=== PATIENT | female | born 1940 | race Caucasian/White ===

== ENCOUNTER 2019-09-19 19:36 | Inpatient (IN) | payer OTHER ==
[2019-09-19] MEDS ORDERED: NA CHLORIDE 0.9% 1,000 ML IV SCH (22:00)
[2019-09-19 22:02] LABS: Absolute Lymphocytes (CBC) 1.2 K/uL (0.7-4.9); Basophils % 0.3 % (0-1.3); Hematocrit 44.9 % (36.0-45.0); Lymphocytes % 13.8 % (15.3-44.8); MPV 8.6 fL (7.6-11.3); RBC Red Blood Cell Count 4.86 M/uL (3.86-4.86)
[2019-09-19 22:16] LABS: Albumin 4.3 g/dL (3.4-5.0); Bilirubin Total 0.4 mg/dL (0.2-1.0); Magnesium 2.9 mg/dL (1.8-2.4); Potassium 3.9 mmol/L (3.5-5.1); Protein, Total 9.5 g/dL (6.4-8.2)
[2019-09-19] MEDS ORDERED: ACETAMINOPHEN 500 MG TAB PO PRN (23:07)
[2019-09-19] MEDS: ONDANSETRON 4 MG/2 ML VIAL IV PRN (23:49)
[2019-09-19] MEDS ORDERED: POTASSIUM CL SA 10 MEQ TAB PO ONE (23:56)
[2019-09-20] MEDS: Levofloxacin 250mg IV 250 MG/50 ML BAG IV SCH (02:42)
[2019-09-20 03:14] LABS: Urine Appearance CLOUDY; Urine Blood NEGATIVE (NEG); Urine Color YELLOW; Urine Glucose NEGATIVE (NEG); Urine Protein TRACE (NEG); Urine Urobilinogen 0.2 mg/dL (0.2-1.0)
[2019-09-20 03:53] LABS: Urine Bilirubin NEGATIVE (NEG)
[2019-09-20] MEDS: METRONIDAZOLE 500mg IVPB 500 MG/100 ML BAG IV SCH ×3 (04:15→16:51)
[2019-09-20 04:23] LABS: Urine Bacteria >50 /HPF (<20); Urine Culture Reflex Order REFLEXED; Urine RBC <5 /HPF (NONE SEEN)
[2019-09-20] MEDS: ONDANSETRON 4 MG/2 ML VIAL IV PRN (05:41)
--- NOTE | 2019-09-20 06:58 | RAD REPORT ---
EXAM DESCRIPTION: RAD - Chest Pa And Lat (2 Views) - 09/19/2019 9:39 pm CLINICAL HISTORY: abd pain COMPARISON: None. TECHNIQUE: PA and lateral views of the chest were obtained. FINDINGS: The lungs are normal volume. No failure or volume overload. Interstitial stranding is pres ent in each lung base. No comparison is available. This could be scarring or atelectasis. Minimal int erstitial infiltrate is not excluded but lesser in likelihood. Heart size is normal and central vasculature is within normal limits. No pleural effusion or pneu mothorax seen. No acute bony finding noted. No aortic abnormality. IMPRESSION: No focal mass, consolidation or failure finding. Baseline examination showing minimal stranding in each lung base. This could be atelectasis, scarring or less likely mild interstitial infiltrate.
[2019-09-20 07:09] LABS: Potassium 3.8 mmol/L (3.5-5.1)
[2019-09-20] MEDS ORDERED: INFLUENZA VACCINE (for 3y+) 0.5 ML DOSE IMVAC ONE (08:00)
[2019-09-20] MEDS ORDERED: PNEUMOCOCCAL VACCINE 0.5 ML IMVAC ONE (08:00)
[2019-09-20] MEDS ORDERED: PROMETHAZINE INJ 25 MG/ML AMP IV PRN (08:54)
[2019-09-20] MEDS ORDERED: HEPARIN 5000 UNIT/ML 1 ML VIAL SQ SCH (09:00)
[2019-09-20] MEDS: METOPROLOL XL 25 MG TAB PO SCH (09:00)
[2019-09-20] MEDS: NA CHLORIDE 0.9% 1,000 ML IV SCH ×2 (09:05→16:51)
[2019-09-20] MEDS: FAMOTIDINE 20 MG/2 ML VIAL IV SCH (09:08)
[2019-09-20] MEDS ORDERED: propofoL 200 MG/20 ML VIAL IV ONE (10:59)
[2019-09-20] MEDS ORDERED: LIDOCAINE 2% MPF 5 ML VIAL ONE (10:59)
[2019-09-20] MEDS ORDERED: ONDANSETRON 4 MG/2 ML VIAL ONE ×2 (10:59→13:59)
[2019-09-20] MEDS ORDERED: ROCURONIUM 50 MG/5 ML VIAL IV ONE ×2 (11:00→12:34)
[2019-09-20] MEDS ORDERED: Ringers Lactate 1,000 ML IV ONE ×3 (11:24→13:56)
--- NOTE | 2019-09-20 11:28 | RAD REPORT ---
EXAM DESCRIPTION: CT - Abdomen Pelvis Wo Contrast - 09/20/2019 4:03 am CLINICAL HISTORY: Nausea, vomiting, constipation. Fibromyalgia. Left lower quadrant abdominal pain. COMPARISON: None. TECHNIQUE: Axial unenhanced CT imaging of the abdomen and pelvis performed. Reformatted coronal and sagittal images reviewed. A dose reduction technique was utilized with automated exposure control according to patient size. FINDINGS: Scattered atelectasis in the lingula. Mild centrilobular nodular opacities in the left low er lobe compatible with small airways inflammatory/infectious process. There is a 1.1 cm nodule withi n right middle lobe. The heart is normal in size. Normal liver. Normal gallbladder, spleen, pancreas, adrenal glands, and kidneys. Moderate aorta ather osclerosis. No aneurysm. Inferior vena cava is flat in contour indicative of hypovolemia. No retroper itoneal lymphadenopathy. There is contrast distention of the stomach. There is diffuse dilatation of the jejunum. Transition p oint is in the left lower quadrant where there is a left lateral rectus ventral abdominal wall hernia containing a short segment of the small bowel. There is edema within the herniated fat surrounding t he herniated segment of bowel. The small bowel distal to the hernia is decompressed. Normal appendix in the right lower quadrant. Unremarkable colon. No mesenteric adenopathy or ascites. No free air. Normal bladder. Uterus is surgically absent. There is no pelvic free fluid. There is a small fat-cont aining left inguinal hernia. There is a small bowel and fat containing right inguinal hernia without obstruction or incarceration. There is a moderate diffuse disc bulge at L1-2, L3-4. There is mild degenerative anterior subluxation of L4 on L5. There is significant degenerative disc space narrowing at L5-S1. Bony pelvis and hips a re unremarkable. IMPRESSION: 1. Left lower quadrant lateral rectus abdominal wall hernia containing a short segment o f jejunum and fat causing small bowel proximal obstruction. There is evidence of incarceration. No pe rforation. 2. Unincarcerated small bowel containing right inguinal and fat-containing hernia. A small fat-contai lobo left inguinal hernia is also present. 3. Hypovolemia. 4. Moderate diffuse disc bulge at L1-2 and L3-4. 5. Centrilobular left lower lobe and lingula nodular infiltrates. 6. 1.1 cm right middle lobe pulmonary nodule. 11.0 mm solid pulmonary nodule detected on incomplete chest CT. Recommend immediate non-contrast Ches t CT for further evaluation. These guidelines do not apply to immunocompromised patients and patients with cancer. Follow up in pa tients with significant comorbidities as clinically warranted. For lung cancer screening, adhere to L jhony-RADS guidelines. Reference: Radiology. 2017; 284(1):228-43. Electronically signed by: Irlanda Uriarte DO 09/20/2019 3:57 AM HISTOLOGY SPECIALIST Due to temporary technical issues with the PACS/Fluency reporting system, reports are being signed by the in house radiologist as a courtesy to ensure prompt reporting. The interpreting radiologist is f ully responsible for the content of the report.
[2019-09-20] MEDS ORDERED: SUCCINYLCHOLINE 20 MG/ML (10 ML) IV ONE (11:37)
[2019-09-20] MEDS ORDERED: FENTANYL CITR 100 MCG/2 ML ONE ×2 (11:38→12:57)
[2019-09-20] MEDS ORDERED: GLYCOPYRROLATE 0.2 MG/ML SYR ONE ×2 (13:34)
[2019-09-20] MEDS ORDERED: NEOSTIGMINE 1 MG/ML -10 ML VIAL ONE (13:38)
--- NOTE | 2019-09-20 13:58 | P.BOP ---
Preoperative diagnosis: small bowel obstruction, strangulated left inguinal hernia, incarcerated RI Postoperative diagnosis: same Primary procedure: 1. emergent Exploratory laparotomy, 2. small bowel resection/ anastomosis Secondary procedure: 3. Open repair of strangulated left inguinal hernia Other procedure(s): 4. Open repair of incarcerated right inguinal hernia Child And Family Therapist: Lindsay Masters) Estimated blood loss: <50cc Specimen: small bowel , hernia sac Findings: see dictation Anesthesia: General Complications: None Transferred to: Recovery Room Condition: Good
[2019-09-20] MEDS: HYDROMORPHONE HCL 2 MG/ML inj ONE ×4 (13:59→14:19)
[2019-09-20] MEDS ORDERED: MORPHINE 4 MG/ML SYR IV PRN (14:05)
[2019-09-20] MEDS ORDERED: HYDROMORPHONE HCL 1 MG/ML INJ ONE (15:41)
[2019-09-21] MEDS: Levofloxacin 250mg IV 250 MG/50 ML BAG IV SCH (00:13)
--- NOTE | 2019-09-21 00:18 | PN ---
Date of Progress Note: 09/20/2019 Subjective: Patient was seen this morning for followup. She was lying in bed, not in distress. Rep orted 1 episode of nausea, vomiting last night. Objective: Vital Signs: Reviewed. HEENT: Unremarkable. Lungs: Clear to auscultation. Heart: Heart sounds normal. Abdomen: Soft, bowel sounds normal. No guarding, rigidity, distention. Very minimum tenderness in left lower quadrant. Extremities: No leg edema. Laboratory Data: Sodium 129, potassium 3.8, chloride 92, bicarb 20, BUN 113, creatinine 4.28, glucos e 113. Impression: 1.Acute renal failure. 2.Volume depletion. 3.Small bowel obstruction with incarcerated hernia. 4.Hypertension. Plan: We will continue current medications. Keep patient n.p.o. IV fluid, IV antibiotics will be gi riya per order. This morning, she had approximately 500 mL of IV fluid in her bag. Nurse was advised to give it wide-open and then continue IV fluid at 125 mL/hour. We will repeat blood work tomorrow. Details were discussed with Dr. Willoughby, who is planning to take her to surgery today. Plan of tr eatment discussed with family member also. We will continue IV Pepcid. Metoprolol 25 mg daily was ordered to be started this morning for hypertension. ARMIN/MODL Voice ID: [id number] Report ID: [id number]
[2019-09-21] MEDS: METRONIDAZOLE 500mg IVPB 500 MG/100 ML BAG IV SCH ×3 (01:22→16:00)
[2019-09-21] MEDS: NA CHLORIDE 0.9% 1,000 ML IV SCH (01:22)
--- NOTE | 2019-09-21 04:01 | HP ---
Date of Admission: 09/19/2019 Chief Complaint: Abdominal pain, nausea, vomiting, and not feeling good. History Of Present Illness: This is a 79-year-old female patient, came into office today and reporte d that she started to have some sinus congestion and [facility], and wa s diagnosed as having sinus infection and she was prescribed a Z-Mark that she took it. About 1 week ago, she started to have abdominal pain associated with nausea and vomiting. She has also constipati on problem in last 1 week and her last bowel movement was 1 week ago. She is feeling very weak and d oes not have good appetite and when she tries to eat, she ends up having nausea and vomiting. She di d not seek any medical attention until today. She decided to come see me and after I evaluated her, decision was made to admit her to the hospital as I was concerned about dehydration on basis of clini susan exam. Review of Systems: GI: As mentioned above. Constitutional: As mentioned above. All other systems reviewed and negative. Allergies: PENICILLIN, CAUSING RASH. Medications: Amlodipine 5 mg daily, aspirin 81 mg daily, Caltrate plus D 1 tablet 2 times a day, Cla ritin 10 mg daily as needed for allergies. Past Surgical History: Significant for hysterectomy. Family History: Significant for father of stomach cancer. Mother of colon cancer. Sister with hypertension. Social History: Negative for smoking and alcohol use. Past Medical History: Hypertension, hyperlipidemia, osteoporosis, and diverticulosis. Physical Examination: At office when she came in today, Vital Signs: Blood pressure 120/88; pulse 114 per minute, regular; temperature 98.2; respiratory rat e 15; weight 142.6 pounds; and height 61 inches. General: Patient appears weaker than normal, not in any respiratory distress. HEENT: Dry oral mucosa. Otherwise rest of the HEENT examination unremarkable. Neck: Supple. No JVD, lymph nodes, bruit, thyromegaly noted. Lungs: Bilateral good equal air entry. Clear to auscultation. No rhonchi. No rales. Heart: Normal heart sounds, no murmur or gallop. Abdomen: Soft. Bowel sounds normoactive. No guarding, rigidity. No distention. Minimum left lowe r quadrant tenderness present. No rebound tenderness. No hepatosplenomegaly. No bruit. Extremities: No leg edema. No calf tenderness. Skin: No rash, ulcer, cellulitis. Lymphatics: No lymph node enlargement in neck, supraclavicular, infraclavicular region. Neuro: No focal neurological deficit. Chest: Unremarkable. External Genitalia: Deferred. Rectal: Deferred. Laboratory Data: Blood work after she was admitted to the hospital revealed white count 9, hemoglobi n 15.2, platelets 267. Sodium 130, potassium 3.9, chloride 94, bicarb 19, BUN 111, creatinine 4.32, glucose 135, calcium 10.3, magnesium 2.9. Liver function tests unremarkable. Procalcitonin 0.44, la ctic acid 1.7. Chest x-ray, no acute cardiopulmonary changes. CAT scan of abdomen shows evidence of abdominal wall hernia with incarcerated bowel and pulmonary nodule. Impression: 1.Acute renal failure. 2.Volume depletion. 3.Abdominal wall hernia with small bowel incarceration. 4.Hypertension. 5.Hyperlipidemia. 6.Osteoporosis. 7.Diverticulosis. Plan: Admit patient to the hospital for further evaluation and management of this problem. The [facility] ent is appropriate for inpatient and is expected to spend 2 midnights in hospital. After she was gricel luated at office, she was admitted to the hospital. After admission to the hospital, workup was done , results as mentioned above. The patient was started on IV fluid, IV antibiotics, and we will consu lt general surgeon. DVT prophylaxis will be given per order. We will monitor patient's electrolytes , renal function, and I will see her tomorrow for followup. Pain medication and nausea medication wi ll be given per order. ARMIN/MODL Voice ID: [id number]
[2019-09-21 04:51] LABS: Basophils % 0.2 % (0-1.3); MPV 9.1 fL (7.6-11.3); RBC Red Blood Cell Count 3.77 M/uL (3.86-4.86)
[2019-09-21 04:54] LABS: Magnesium 2.2 mg/dL (1.8-2.4); Potassium 3.6 mmol/L (3.5-5.1)
[2019-09-21 05:52] VITALS: BMI 26.5
[2019-09-21] MEDS ORDERED: KCL 20 MEQ/100 mL IVPB 20 MEQ/100 ML BAG IV SCH (06:00)
[2019-09-21] MEDS: D5 0.9 NS 1,000 ML IV SCH ×2 (08:00→10:46)
[2019-09-21] MEDS: FAMOTIDINE 20 MG/2 ML VIAL IV SCH (08:08)
[2019-09-21] MEDS: MORPHINE 4 MG/ML SYR IV PRN ×3 (08:09→17:12)
[2019-09-21] MEDS: METOPROLOL XL 25 MG TAB PO SCH (08:09)
[2019-09-21] MEDS: HEPARIN 5000 UNIT/ML 1 ML VIAL SQ SCH ×2 (08:23→21:09)
--- NOTE | 2019-09-21 09:22 | P.PN ---
Subjective Date of Service: 09/21/19 Subjective: Improving, Doing well Review of Systems General: Fever (no), Chills (no) Respiratory: Shortness of Breath (no) Cardiovascular: Chest Pain (no) Integumentary: Unremarkable Physical Examination - Vital Signs Temperature: 98.8 F Blood Pressure: 138/66 Pulse: 88 Respirations: 21 Pulse Ox (%): 98 - Physical Exam General: Alert, In no apparent distress, Oriented x3, Cooperative HEENT: PERRLA, EOMI Neck: Supple Respiratory: Normal air movement Cardiovascular: Normal pulses Gastrointestinal: Hypoactive Integumentary: No rashes - Studies Laboratory Data (last 24 hrs) 09/21/19 04:26: Sodium 139, Potassium 3.6, BUN 78 H D, Creatinine 2.36 H D, Glucose 110 H, Magnesium 2.2 D 09/21/19 04:26: WBC 9.6, Hgb 11.7 L D, Hct 35.0 L D, Plt Count 204 D Assessment And Plan - Plan IS PT SCD resume lovenox tomorrow OK for floor transfer when ok by medicine NPO
[2019-09-21] MEDS: ONDANSETRON 4 MG/2 ML VIAL IV PRN ×2 (12:40→17:12)
[2019-09-22] MEDS: Levofloxacin 250mg IV 250 MG/50 ML BAG IV SCH (00:03)
--- NOTE | 2019-09-22 01:04 | PN ---
Date of Progress Note: 09/21/2019 Subjective: Patient was seen this morning for followup. She was lying in bed in ICU. Her son was p resent with her at bedside. Objective: Vital Signs: Reviewed. HEENT: Unremarkable. Lungs: Clear to auscultation. Heart: Sounds normal. Abdomen: Soft. Bowel sounds hypoactive. Extremities: No leg edema. Laboratory Data: White count 9.6, hemoglobin 11.7, platelets 204. Sodium 139, potassium 3.6, chlori de 107, bicarb 23, BUN 78, creatinine 2.36, glucose 110, magnesium 2.2. Impression: 1.Incarcerated abdominal wall hernia, status post surgery. 2.Acute renal failure. 3.Volume depletion. 4.Anemia. 5.Hypertension. Plan: We will go ahead and continue IV fluid per order. Continue IV antibiotics. DVT prophylaxis w ill be given using heparin per order. Patient is medically stable for transfer. See transfer order for more details. Consult Physical Therapy. We will repeat blood work tomorrow morning. I will see her tomorrow morning for followup. ARMIN/MODL Voice ID: [id number] Report ID: [id number]
[2019-09-22] MEDS: METRONIDAZOLE 500mg IVPB 500 MG/100 ML BAG IV SCH ×3 (01:30→16:49)
[2019-09-22] MEDS: D5 0.9 NS 1,000 ML IV SCH (04:00)
[2019-09-22] MEDS: ONDANSETRON 4 MG/2 ML VIAL IV PRN ×3 (05:18→21:48)
[2019-09-22] MEDS: MORPHINE 4 MG/ML SYR IV PRN ×3 (05:19→21:48)
[2019-09-22 05:40] LABS: Absolute Lymphocytes (CBC) 0.9 K/uL (0.7-4.9); Basophils % 0.4 % (0-1.3); Hematocrit 33.4 % (36.0-45.0); Lymphocytes % 10.5 % (15.3-44.8); MPV 8.4 fL (7.6-11.3); RBC Red Blood Cell Count 3.57 M/uL (3.86-4.86)
[2019-09-22 05:56] LABS: Magnesium 2.2 mg/dL (1.8-2.4); Potassium 3.8 mmol/L (3.5-5.1)
[2019-09-22] MEDS: D5 0.45 NS 1,000 ML IV SCH ×2 (06:58→21:47)
[2019-09-22] MEDS ORDERED: KCL 20 MEQ/100 mL IVPB 20 MEQ/100 ML BAG IV SCH (07:00)
[2019-09-22] MEDS: METOPROLOL XL 25 MG TAB PO SCH (09:00)
[2019-09-22] MEDS: Levofloxacin500mg IV 500 MG/100 ML BAG IV SCH (09:30)
[2019-09-22] MEDS: FAMOTIDINE 20 MG/2 ML VIAL IV SCH (09:45)
[2019-09-22] MEDS: HEPARIN 5000 UNIT/ML 1 ML VIAL SQ SCH ×2 (09:45→21:49)
--- NOTE | 2019-09-23 01:04 | PN ---
Date of Progress Note: 09/22/2019 Subjective: The patient was seen this morning for followup. No new complaints or problems reported by her. NG tube was in place. Denies any abdominal pain except when she gets up to do therapy, othe rwise no other complaints. No shortness of breath. She feels much better. She looks much better. Her son was present with her at bedside. Objective: Vital Signs: Reviewed. HEENT: Unremarkable. Lungs: Clear to auscultation. Heart: Heart sounds normal. Abdomen: Soft, bowel sounds hypoactive. Surgical dressing present. Extremities: No leg edema. Laboratory Data: Lab shows white count 9.8, hemoglobin 11.5, platelets 196. Sodium 146, potassium 3 .8, chloride 115, bicarb 27, BUN 45, creatinine 1.39, glucose 136, magnesium 2.2. Impression: 1.Small bowel obstruction with incarcerated hernia. 2.Acute renal failure. 3.Volume depletion. 4.Anemia. 5.Hypertension. Plan: We will continue current medication, antibiotics, Levaquin dose will be increased from 250 mg to 500 mg daily considering improvement in renal function. Continue Flagyl at current dose. Physica l therapy to help ambulate the patient. Continue IV fluids. Continue to follow up with Dr. Willoughby . He is possibly going to remove NG tube tomorrow, so patient can start hopefully clear liquid tomorrow when okay with Dr. Willoughby. I will s ee her tomorrow for followup. ARMIN/MODL Voice ID: [id number] Report ID: [id number]
[2019-09-23] MEDS: METRONIDAZOLE 500mg IVPB 500 MG/100 ML BAG IV SCH ×3 (01:13→16:32)
[2019-09-23 06:04] LABS: Magnesium 2.1 mg/dL (1.8-2.4)
[2019-09-23 06:09] LABS: Absolute Lymphocytes (CBC) 1.4 K/uL (0.7-4.9); Basophils % 0.4 % (0-1.3); Hematocrit 35.7 % (36.0-45.0); Lymphocytes % 16.1 % (15.3-44.8); RBC Red Blood Cell Count 3.75 M/uL (3.86-4.86)
[2019-09-23] MEDS: Levofloxacin500mg IV 500 MG/100 ML BAG IV SCH (06:14)
[2019-09-23] MEDS: FAMOTIDINE 20 MG/2 ML VIAL IV SCH (08:47)
[2019-09-23] MEDS: HEPARIN 5000 UNIT/ML 1 ML VIAL SQ SCH ×2 (08:48→21:23)
[2019-09-23] MEDS: METOPROLOL XL 25 MG TAB PO SCH (08:48)
[2019-09-23] MEDS: MORPHINE 4 MG/ML SYR IV PRN ×3 (09:10→21:24)
[2019-09-23] MEDS: ONDANSETRON 4 MG/2 ML VIAL IV PRN ×3 (09:10→21:23)
[2019-09-23] MEDS: D5 0.45 NS 1,000 ML IV SCH ×3 (09:40→16:33)
--- NOTE | 2019-09-23 18:26 | PN ---
Date of Progress Note: 09/23/2019 Subjective: Patient was seen this morning for followup. No new complaints or problems reported by t he patient. She was sitting in the chair. Denied any complaints. NG tube came out yesterday. Fole y catheter came out yesterday. She did void about 160 mL of urine overnight. This morning, when I s aw her, she was sitting in chair. Denied any complaints. Had little bit nausea with ambulation, but otherwise no other complaints reported. Has not had a bowel movement yet. Objective: Vital Signs: Reviewed. HEENT: Unremarkable. Lungs: Clear to auscultation. Heart: Sounds normal. Abdomen: Soft. Bowel sounds normal. No guarding, rigidity. Mild tenderness around the surgical si te. Extremities: No leg edema. Laboratory Data: White count 8.9, hemoglobin 12, platelets 214. Sodium 142, potassium 4, chloride 1 16, bicarb 22, BUN 29, creatinine 1.13, glucose 118. Impression: 1.Small bowel obstruction. 2.Hypertension. 3.Anemia. 4.Acute renal failure. 5.Volume depletion. Plan: We will reduce IV fluid rate to 50 mL/hour. Continue clear liquid diet as started by general surgeon Dr. Willoughby and continue to follow up with him. Continue IV antibiotics and physical therap y to help ambulate the patient. Renal function is back to normal as of today. Patient was made aware of that and I will see her tomorrow for followup. ARMIN/MODL Voice ID: [id number] Report ID: [id number]
--- NOTE | 2019-09-23 18:26 | PN ---
Date of Progress Note: 09/23/2019 Diagnoses: Small bowel obstruction, incarcerated strangulated inguinal hernia, status post laparotom y, repair of hernia, and small-bowel resection. Subjective: Patient is doing better. No shortness of breath. No chest pain. Starting to tolerate clear liquid diet. Objective: Chest: Clear. Abdomen: Soft and depressible. Intact surgical site. Bowel sounds hypoactive. Extremities: Good capillary refill. Laboratory Data: Blood work shows WBC count of 8.9 and chloride is 116. Plan: Out of bed. Incentive spirometry. We are going to advance diet. May take a shower with dres sings off. Plan put discharge whenever she is tolerating diet. HM/MODL Voice ID: [id number] Report ID: [id number]
[2019-09-24] MEDS: METRONIDAZOLE 500mg IVPB 500 MG/100 ML BAG IV SCH ×3 (00:49→17:11)
--- NOTE | 2019-09-24 01:19 | OP ---
Date of Procedure: 09/23/2019 Surgeon: Mathew Willoughby MD Government Affairs Fellow: JOYCELYN Beauchamp. Diagnoses: Small bowel obstruction, strangulated left inguinal hernia, incarcerated right inguinal h ernia. Postoperative Diagnoses: Small bowel obstruction, strangulated left inguinal hernia, incarcerated ri ght inguinal hernia. Procedures: 1.Emergent exploratory laparotomy. 2.Small bowel resection and anastomosis. 3.Open repair of a strangulated left inguinal hernia. 4.Open repair of incarcerated right inguinal hernia. Specimens: Small bowel hernia sac. Indications: This case of a female who came emergently through the ER with very interesting finding she has small bowel obstruction and then she has also 2 hernias at the same time. Two of those herni as have a small bowel incarcerated on it and one of them looks like it even a strangulated. I explai jovi to the patient that 2 hernias are causing the bowel obstruction and unfortunately we might have t o repair 2 of them at the same time, also possible bowel resection, with emergent laparotomy with shantel efits, alternatives, and risks including, but not limited to infection, bleeding, damage to adjacent structures as complication, recurrence, NC, and even . She also understands, this may not relie ve the symptoms, she might need more than one surgical intervention. She understood, signed a consen t. Description Of Procedure: Patient was brought to the operating room, placed in supine position. Ane sthesia was done without complication. Abdominal area and inguinal area were prepped and draped in s terile fashion. We proceeded to make an incision in the inguinal region first. We were going to try to control that bowel first which, I believe was more affected. Incision was carried down to Kaitlin 's fascia. Opened external oblique aponeurosis in the direction of the fibers, got control of the in carcerated tissue in that area. Opened the hernia sac and they were in deed we noticed some bowel th at looked compromise. So, we did not reduce the bowel from there since we do not want miss that rese ction. We made a midline incision. Incision was carried down to fascia, opened in direct vision. W e did the emergent laparotomy. We were able to finally reduce the inguinal region and control the ar ea of the intestines that was just strangulated and marked. We will let a few minutes there to see i f recover. In the meantime, we proceeded to fix the right inguinal hernia. Once again, we had the s wagner findings. We were able at this time to reduce the small bowel also from the right inguinal herni a, but this time the bowel looks at least viable. We made an incision on the inguinal region. Incis ion carried down to fascia. Kaitlin's fascia was opened. External oblique aponeurosis was opened dir ection of the fiber and this was what allowed me to just be able to reduce this bowel by pulling and pushing gently. Once we had the bowel reduced and once again, the findings of being viable, we proce eded to close a deep inguinal ring with #1 Prolene. We visualized the ilioinguinal nerve and iliohyp ogastric nerve and both sides left and right, always protecting, we find external oblique aponeurosis . Once we closed the deep inguinal ring, we proceeded to bring the inguinal nerve, ilioinguinal and iliohypogastric nerve back into the inguinal canal, reconstructed the superficial inguinal ring, clos ed the external oblique aponeurosis making sure the nerves were not included. Kaitlin's fascia was cl osed with 3-0 chromic and skin with carlo. The same was done on the left side once again protectin g the nerve, closing the deep inguinal ring and closed the external oblique aponeurosis after the ner ve were placed back into the inguinal canal and making sure it was not close with the suture line. S carpa's fascia closed with 3-0 chromic and the skin with carlo. At that moment, we inspected once again the bowel from the ligament of Treitz to all the way to the cecum. Once again, we inspect also the large bowel. We also found the liver to be smoothed with the stomach soft and compressible. Th e area of the bowel that was in the right side was viable, but the area of the bowel of the left side it shows few centimeters that were not and still no peristalsis and has not recover in size or color , so we proceeded to then create a window in the mesentery and transect the bowel with a BRITNEY 55 proxi mal and distal. Gross negative margins viable. Then, we removed the small bowel with the help of Manuela Mancilla. We placed the antimesenteric border of each side of the bowel together. We created a window in the proximal and distal bowel, fired a BRITNEY-55 and then closed the enterotomy with a TA60. Excell ent anastomosis, no bleeding. Good color. The mesentery was closed approximated with a 0-chromic. We noted therefore a second looks good, good color, no bleeding. At that moment, I proceeded to irri gate the area until clean. Once again, we inspected 2 areas of the small bowel that was incarcerated to look like it was recovering size, color, the previous area that was just a very a collapse after the obstruction, now it looks like it was regaining shape and color. At that moment, I then proceede d to inspect the area of the inguinal hernias, looks nice and clean. At that moment, I proceeded the n to obtain sponge count and instrument counts were correct and then closed the fascia with #2 nylon in a running fashion. Then subcutaneous tissue with 3-0 chromic and skin with carlo. Sponge count and instrument counts were correct. Patient tolerated the procedure well. The patient was sent to the ICU in stable condition. LAURA/DARRELL Voice ID: [id number] Report ID: [id number]
[2019-09-24] MEDS: Levofloxacin500mg IV 500 MG/100 ML BAG IV SCH (05:21)
[2019-09-24 06:21] LABS: Magnesium 1.7 mg/dL (1.8-2.4); Potassium 3.8 mmol/L (3.5-5.1)
[2019-09-24 06:32] LABS: Absolute Lymphocytes (CBC) 1.5 K/uL (0.7-4.9); Basophils % 0.3 % (0-1.3); Hematocrit 33.8 % (36.0-45.0); Lymphocytes % 20.3 % (15.3-44.8); MPV 8.6 fL (7.6-11.3); RBC Red Blood Cell Count 3.56 M/uL (3.86-4.86)
[2019-09-24] MEDS ORDERED: MAGNESIUM SULFATE 1 gm IVPB 1 GM/100 ML BAG IV ONE (09:00)
[2019-09-24] MEDS ORDERED: POTASSIUM CL SA 10 MEQ TAB PO ONE (09:00)
[2019-09-24] MEDS: METOPROLOL XL 25 MG TAB PO SCH (09:20)
[2019-09-24] MEDS: FAMOTIDINE 20 MG/2 ML VIAL IV SCH (09:20)
[2019-09-24] MEDS: HEPARIN 5000 UNIT/ML 1 ML VIAL SQ SCH ×2 (09:21→20:35)
[2019-09-24] MEDS: CODEINE 30MG/APAP 300MG TAB PO PRN ×2 (12:42→20:35)
[2019-09-24] MEDS: D5 0.45 NS 1,000 ML IV SCH (18:49)
[2019-09-25] MEDS: METRONIDAZOLE 500mg IVPB 500 MG/100 ML BAG IV SCH ×3 (00:29→17:21)
[2019-09-25] MEDS: D5 0.45 NS 1,000 ML IV SCH (03:00)
[2019-09-25 05:15] LABS: Magnesium 1.9 mg/dL (1.8-2.4); Potassium 3.9 mmol/L (3.5-5.1)
[2019-09-25 05:17] LABS: Absolute Lymphocytes (CBC) 1.8 K/uL (0.7-4.9); Basophils % 0.4 % (0-1.3); Hematocrit 32.6 % (36.0-45.0); Lymphocytes % 23.9 % (15.3-44.8); MPV 8.4 fL (7.6-11.3); RBC Red Blood Cell Count 3.46 M/uL (3.86-4.86)
[2019-09-25] MEDS: Levofloxacin500mg IV 500 MG/100 ML BAG IV SCH (05:20)
[2019-09-25] MEDS: HEPARIN 5000 UNIT/ML 1 ML VIAL SQ SCH ×2 (09:09→22:35)
[2019-09-25] MEDS: METOPROLOL XL 25 MG TAB PO SCH (09:09)
[2019-09-25] MEDS: FAMOTIDINE 20 MG/2 ML VIAL IV SCH (09:09)
[2019-09-25] MEDS ORDERED: FUROSEMIDE 20 MG/ 2ML VIAL IV ONE (09:34)
[2019-09-25] MEDS ORDERED: MAGNESIUM HYDROXIDE 8% 30 ML PO ONE (09:34)
[2019-09-25] MEDS: CODEINE 30MG/APAP 300MG TAB PO PRN ×2 (10:16→22:34)
--- NOTE | 2019-09-25 10:41 | RAD REPORT ---
EXAM DESCRIPTION: RAD - Chest Single View - 09/25/2019 10:20 am CLINICAL HISTORY: Volume overload COMPARISON: September 19 TECHNIQUE: AP portable chest image was obtained 1015 hours . FINDINGS: Lung volumes are low compared to prior imaging. Medial left base assessment is very limite d. Mid and upper lung varma are not substantially different. Minimal lung base stranding is believed to be atelectasis. Heart and vasculature are normal. No measurable pleural effusion and no pneumotho rax. No acute bony abnormality seen. No acute aortic findings suspected. IMPRESSION: No acute cardiopulmonary process. No significant change from comparison. Medial left lung base assessment is limited on this shallow in spiration portable exam.
--- NOTE | 2019-09-25 11:02 | PN ---
Date of Progress Note: 09/24/2019 Subjective: Patient was seen this morning for followup. She was lying in bed, not in distress. Den ies any new complaints. Tolerating her diet well. No bowel movement yet. Denies any uncomfortable feeling in her rectum or abdomen due to lack of bowel movement. No nausea, no vomiting. Objective: Vital Signs: Reviewed. HEENT: Unremarkable. Lungs: Clear to auscultation. Heart: Sounds normal. Abdomen: Soft. Bowel sounds normal. No guarding, rigidity, tenderness, or distention. Extremities: No leg edema. Laboratory Data: White count 7.5, hemoglobin 11.4, platelets 233. Sodium 143, potassium 3.8, chlori de 112, bicarb 25, BUN 22, creatinine 1.07, glucose 125, magnesium 1.7. Impression: 1.Small bowel obstruction. 2.Hypomagnesemia. 3.Anemia. 4.Hypertension. Plan: We will go ahead and continue current medication. Continue current diet, IV antibiotics. IV fluids maintenance 50 cc/hour and we will probably consider to discontinue it tomorrow depending on h ow she tolerates her diet. Ambulation was encouraged. Replace magnesium per protocol. ARMIN/MODL Voice ID: [id number] Report ID: [id number]
--- NOTE | 2019-09-25 11:02 | PN ---
Date of Progress Note: 09/25/2019 Subjective: Patient was seen this morning for followup. No new complaints or problems reported by megan katz except has some dry cough. No bowel movement yet. Objective: Vital Signs: Reviewed. HEENT: Unremarkable. Lungs: Bilateral rales noted in lower 1/3rd of both lung region. Not using any accessory muscles of respiration. Heart: Sounds normal. Abdomen: Soft. Bowel sounds normal. No guarding, rigidity, tenderness, or distention. Extremities: Leg edema. Laboratory Data: White count 7.3, hemoglobin 10.9, platelets 217. Sodium 142, potassium 3.9, chlori de 112, bicarb 26, BUN 15, creatinine 0.98, glucose 124, magnesium 1.9. Impression: 1.Volume overload. 2.Small bowel obstruction. 3.Hypertension. 4.Anemia. 5.Constipation. Plan: Patient is no full liquid diet. She is tolerating that very well. Ambulation was encouraged. She is currently getting IV fluids at 50 cc/hour, which will discontinue today, considering clinica l signs and evidence of volume overload and symptom of dry cough. We will get a chest x-ray done. G chris her 1 dose of IV Lasix per order. Continue current IV antibiotics. Nutritional supplement will be started using Ensure and I will see her tomorrow for followup. Details were discussed with Dr. Willoughby, and we will give 1 dose of milk of magnesia today. ARMIN/MODL Voice ID: [id number] Report ID: [id number]
[2019-09-25] MEDS: ENSURE HIGH PROTEIN 237 ML CAN PO SCH ×2 (14:00→22:35)
[2019-09-26] MEDS: METRONIDAZOLE 500mg IVPB 500 MG/100 ML BAG IV SCH ×3 (01:11→16:48)
[2019-09-26 05:52] LABS: Absolute Lymphocytes (CBC) 1.9 K/uL (0.7-4.9); Basophils % 0.3 % (0-1.3); Hematocrit 31.7 % (36.0-45.0); Lymphocytes % 23.6 % (15.3-44.8); MPV 8.5 fL (7.6-11.3); RBC Red Blood Cell Count 3.44 M/uL (3.86-4.86)
[2019-09-26 06:06] LABS: Magnesium 1.9 mg/dL (1.8-2.4); Potassium 3.2 mmol/L (3.5-5.1)
[2019-09-26] MEDS: Levofloxacin500mg IV 500 MG/100 ML BAG IV SCH (06:36)
[2019-09-26] MEDS: FAMOTIDINE 20 MG/2 ML VIAL IV SCH (08:32)
[2019-09-26] MEDS: HEPARIN 5000 UNIT/ML 1 ML VIAL SQ SCH ×2 (08:32→21:04)
[2019-09-26] MEDS: METOPROLOL XL 25 MG TAB PO SCH (08:32)
[2019-09-26] MEDS: ENSURE HIGH PROTEIN 237 ML CAN PO SCH ×3 (08:33→21:09)
[2019-09-26] MEDS: MORPHINE 4 MG/ML SYR IV PRN (08:48)
[2019-09-26] MEDS: CODEINE 30MG/APAP 300MG TAB PO PRN ×2 (08:59→21:03)
[2019-09-26] MEDS ORDERED: POTASSIUM CL SA 10 MEQ TAB PO ONE (09:00)
[2019-09-26 22:38] VITALS: O2SAT 97
--- NOTE | 2019-09-26 23:59 | PN ---
Date of Progress Note: 09/26/2019 Subjective: Patient was seen this morning for followup. She is feeling better than yesterday. No n ew complaints or problems reported. Objective: Vital Signs: Reviewed. HEENT: Unremarkable. Lungs: Bilateral good equal air entry. Very minimum basal rales noted significantly better today th an yesterday after 1 dose of Lasix that she was given yesterday. She tolerated this very well. Heart: Heart sounds normal. Abdomen: Soft. Bowel sounds normal. No guarding, rigidity, tenderness, or distention. Extremities: No leg edema. Laboratory Data: White count 8, hemoglobin 10.8, platelets 214. Sodium 140, potassium 3.2, chloride 109, bicarb 26, BUN 19, creatinine 0.85, glucose 109, magnesium 1.9. Impression: 1.Small bowel obstruction. 2.Anemia. 3.Volume overload. 4.Hypokalemia. 5.Hypertension. Plan: We will continue current antibiotic, blood pressure medications. Ambulation was encouraged. No need for any more diuretic therapy. I will see her tomorrow for followup. Possible discharge to go home either tomorrow or day after tomorrow depending on her condition and social service consultat ion was requested to assist with discharge planning to make arrangements for home health care and home physical therapy. ARMIN/MODL Voice ID: [id number] Report ID: [id number]
[2019-09-27] MEDS: METRONIDAZOLE 500mg IVPB 500 MG/100 ML BAG IV SCH ×3 (00:44→17:00)
[2019-09-27 05:57] LABS: Magnesium 1.8 mg/dL (1.8-2.4); Potassium 3.5 mmol/L (3.5-5.1)
[2019-09-27] MEDS: Levofloxacin500mg IV 500 MG/100 ML BAG IV SCH (06:09)
[2019-09-27] MEDS ORDERED: MAGNESIUM SULFATE 1 gm IVPB 1 GM/100 ML BAG IV ONE (09:00)
[2019-09-27] MEDS ORDERED: POTASSIUM CL SA 10 MEQ TAB PO ONE (09:00)
[2019-09-27] MEDS: ENSURE HIGH PROTEIN 237 ML CAN PO SCH ×2 (09:00→13:21)
[2019-09-27] MEDS: FAMOTIDINE 20 MG/2 ML VIAL IV SCH (09:51)
[2019-09-27] MEDS: METOPROLOL XL 25 MG TAB PO SCH (09:52)
[2019-09-27] MEDS: HEPARIN 5000 UNIT/ML 1 ML VIAL SQ SCH (09:52)
[2019-09-27] MEDS: CODEINE 30MG/APAP 300MG TAB PO PRN (10:24)
[2019-09-27 16:28] VITALS: BP 146/71; TEMP 98.5
--- NOTE | 2019-09-28 03:17 | DS ---
Date of Discharge: 09/27/2019 History: The patient was seen this morning for followup. She has some acid reflux complaints, but o therwise no vomiting. Has a bowel movement about 2 times a day. Denies any abdominal pain. Physical Examination: Vital Signs: Reviewed. HEENT: Unremarkable. Lungs: Clear to auscultation. Heart: Heart sounds normal. Abdomen: Soft, bowel sounds normal. No guarding, rigidity, tenderness, or distention. Extremities: No leg edema. Laboratory Data: Last CBC from yesterday; white count 8, hemoglobin 10.8, platelets 214. Last chemi stry from today sodium 141, potassium 3.5, chloride 111, bicarb 24, BUN 20, creatinine 0.82, glucose 107, magnesium 1.8. Her initial white count on 09/19/2019, was 9, hemoglobin 15.2, platelets 267. H er initial chemistry on 09/19/2019, BUN was 111, creatinine 4.32. Hospital Course: A 79-year-old very pleasant female patient, admitted to the hospital after she came into office with abdominal pain, nausea, vomiting, and not feeling good. Please see dictated H and P for more information. The patient was evaluated at the office, she was admitted to the hospital. Further evaluation with help of blood work revealed that she was in acute renal failure with volume d epletion and CAT scan of abdomen revealed that the patient had small bowel obstruction with incarcera marguerite hernia. Dr. Willoughby was consulted and he performed surgery on her day after admission. Postope ratively, the patient was admitted to ICU. Her condition started improving after surgery with IV flu ids, IV antibiotics. She was kept in ICU for a day or so and then we transferred her out of ICU to r egular room. DVT prophylaxis was given to her using heparin. Physical therapy was consulted, the sherlyn plata started ambulating well. Initially, she was n.p.o. with NG tube. Once NG tube was discontinue d, she was started on clear liquid diet and her diet was advanced and she tolerated that very well. Few days ago, she had volume overload with some dry cough. Her IV fluid was discontinued and she was getting maintenance fluid at about 50 mL/hour, which was discontinued. One dose of Lasix 20 mg IV w as given and that resulted in significant improvement in clinical findings and day after the Lasix wa s given signs of volume overload resolved. Social Service was consulted to help make arrangements fo home health and home physical therapy and today she was discharged to go home in stable condition w ith following discharge medications and instructions. Dr. Willoughby did exploratory laparotomy with s mall bowel resection and end-to-end anastomosis, open repair of strangulated left inguinal hernia and open repair of incarcerated right inguinal hernia. Final Diagnoses: 1.Acute renal failure. 2.Volume depletion. 3.Small bowel obstruction due to strangulated inguinal hernia. 4.Strangulated left inguinal hernia. 5.Incarcerated right inguinal hernia. 6.Anemia, unspecified. 7.Hypokalemia. 8.Hypomagnesemia. 9.Hypertension. 10.Hyperlipidemia. 11.Gastroesophageal reflux disease. Discharge Medications And Instructions: 1.Levofloxacin 500 mg p.o. daily for 1 week. 2.Metronidazole 500 mg p.o. 3 times a day for 1 week. 3.Metoprolol succinate 25 mg 1 tablet p.o. daily. 4.Pantoprazole 40 mg p.o. daily. 5.Promethazine 12.5 mg p.o. 4 times a day as needed for nausea, vomiting. 6.Do not take any medications that you were taking prior to this admission. 7.Take Tylenol 500 mg 4 times a day as needed for mild pain and for more intense pain take Tylenol w ith Codeine No. 3 one tablet by mouth every 6 hours as needed for pain. Prescription given for 30 ta blets. No refill. 8.Follow up at my office on 10/10/2019. 9.Follow with Dr. Willoughby as per his instructions. ARMIN/MODL Voice ID: [id number] Report ID: [id number]
--- NOTE | 2019-09-28 23:05 | CON ---
Date of Consultation: 09/20/2019 History Of Present Illness: Ms. Terry is a 79-year-old patient, came to us complaining of abdomina l pain, nausea, vomiting. Patient found to have today an incarcerated inguinal hernia with small bow el obstruction and a surgical consult was obtained for an evaluation, possible emergent surgery. She says she has for a week has been feeling nauseous, but she has been feeling the pain over the inguin al region. She noted she has a bulging in the left side and on the right side, but she states it has been there for some time. She has noticed in the last few hours the abdomen became distended and wh en she came to the ER, she was found what we described above. She denies any dysuria, hematuria, hem atochezia, or melena. Denies any recent traveling out of the country. Denies any family member sick at home. The only thing that she describes is that she has been coughing significantly over the las t several months since she stated whether changed on her case. She was advised the import ance of colonoscopy since she is not sure when she had hers. She was advised the importance __ when she has family history of colon cancer. Review of Systems: Ten points were otherwise unremarkable. Allergies: TO PENICILLIN. Medications: Reviewed including aspirin. Past Surgical History: Hysterectomy. Family History: Father with stomach cancer. Mother with colon cancer. Social History: She does not smoke. She does not drink alcohol. Physical Examination: General: Patient is awake and alert. HEENT: Pupils are equal and reactive, anicteric. Neck: Supple. Chest: Clear. Heart: S1, S2. Abdomen: Soft, nondistended. No peritonitis, but she had abdominal tenderness. Patient has an inca rcerated left and right inguinal hernia. Rectal: Deferred. Breasts: Deferred. Pelvic: Deferred. Extremities: Good capillary refill. Imaging Procedure: CAT scan was reviewed with the patient with the presence of bilateral inguinal he rnias with small bowel obstruction and of the left inguinal hernia making this an emergent procedure. Laboratory Data: Blood work reviewed. Assessment: Small-bowel obstruction incarcerated probably strangulated left inguinal ana ia and also incarcerated right inguinal hernia. The benefits, alternatives, and risks of emergent re pair of bilateral inguinal hernias. Possible laparotomy, possible bowel resection were fully explain ed to the patient, which include but are not limited to infection, bleeding, damage to adjacent struc tures, anesthesia complication, recurrence, VT, and even . She also understands this may not re lieve any symptoms. She might need more than one surgical intervention. The patient was emergently booked in the OR. LAURA/DARRELL Voice ID: [id number] Report ID: [id number]
== END 2019-09-27 18:00 | disposition home health service (06) | DRG 330 ==
LOC: 2ND 20:35 → 3RD-ICU 09-20 14:56 → 2ND 09-21 10:20
PROVIDERS: ADMIT Internal Medicine; ATTEND Internal Medicine
PROC: 0YQA0ZZ Repair Bilateral Inguinal Region, Open Approach (ICD-10-PCS; principal; 2019-09-20 11:30)
PROC: 0DB80ZZ Excision of Small Intestine, Open Approach (ICD-10-PCS; 2019-09-20 11:30)
DX: K56.609 Unspecified intestinal obstruction, unspecified as to partial versus complete obstruction (principal); K40.00 Bilateral inguinal hernia, with obstruction, without gangrene, not specified as recurrent; N17.9 Acute kidney failure, unspecified; E87.6 Hypokalemia; E86.9 Volume depletion, unspecified; D64.9 Anemia, unspecified; E83.42 Hypomagnesemia; I10 Essential (primary) hypertension; E78.5 Hyperlipidemia, unspecified; K21.9 Gastro-esophageal reflux disease without esophagitis; M81.0 Age-related osteoporosis without current pathological fracture; K57.90 Diverticulosis of intestine, part unspecified, without perforation or abscess without bleeding
CPT/HCPCS: 36415; 71045; 71046; 74176; 80048; 80053; 81001; 83605; 83735; 84132; 84145; 85025; 87086; 87088; 88302; 88305; 97110; 97116; 97161; 97530; J0330; J1170; J1644; J1940; J2405; J2550; J2704; J2710; J3010; J3475; J7030; J7042; J7120; J7799

== ENCOUNTER 2021-03-28 15:38 | Emergency (ER) | payer OTHER ==
[2021-03-28] MEDS ORDERED: LIDOCAINE 1% MPF 2 ML AMPULE ONE (16:43)
--- NOTE | 2021-03-28 16:48 | EDPHYS ---
Physician Documentation [facility] Name: Tony Terry Age: 80 yrs Sex: Female : 1940 Arrival Date: 03/28/2021 Time: 15:44 Bed 5 Private MD: ED Physician Migue Evans HPI: 03/28 16:40 This 80 yrs old Female presents to ER via EMS with complaints of Laceration jr8 face. 16:40 The patient has a laceration related to: falling occurred outdoors, and there are no jr8 complicating factors. The injury was accidental. The laceration(s) is(are) located on the upper outer lip. Onset: The symptoms/episode began/occurred acutely, today. Associated signs and symptoms: The patient has no apparent associated signs or symptoms. The patient has not experienced similar symptoms in the past. The patient has not recently seen a physician. Patient stated that she tripped off curb and hit face causing laceration to lip. Historical: - Allergies: 16:19 PENICILLINS; ca1 - PMHx: 16:19 Hypertension; Gastric Reflux; ca1 - PSHx: 16:19 Hysterectomy; ca1 - Immunization history:: Client reports receiving the 2nd dose of the Covid vaccine, Client reports receiving the 1st dose of the Covid vaccine, Last tetanus immunization: unknown, Pneumococcal vaccine is not up to date, Flu vaccine is not up to date. - Social history:: Smoking status: Patient denies any tobacco usage or history of. ROS: 16:40 Eyes: Negative for injury, pain, redness, and discharge, Neck: Negative for injury, jr8 pain, and swelling, Cardiovascular: Negative for chest pain, palpitations, and edema, Respiratory: Negative for shortness of breath, cough, wheezing, and pleuritic chest pain, Abdomen/GI: Negative for abdominal pain, nausea, vomiting, diarrhea, and constipation, Back: Negative for injury and pain, MS/Extremity: Negative for injury and deformity, Neuro: Negative for headache, weakness, numbness, tingling, and seizure. 16:40 ENT: Positive for dental pain, injury or acute deformity, laceration. Exam: 16:40 Constitutional: This is a well developed, well nourished patient who is awake, alert, jr8 and in no acute distress. Head/Face: Normocephalic, atraumatic. Eyes: Pupils equal round and reactive to light, extra-ocular motions intact. Lids and lashes normal. Conjunctiva and sclera are non-icteric and not injected. Cornea within normal limits. Periorbital areas with no swelling, redness, or edema. Neck: Trachea midline, no thyromegaly or masses palpated, and no cervical lymphadenopathy. Supple, full range of motion without nuchal rigidity, or vertebral point tenderness. No Meningismus. Cardiovascular: Regular rate and rhythm with a normal S1 and S2. No gallops, murmurs, or rubs. Normal PMI, no JVD. No pulse deficits. Respiratory: Lungs have equal breath sounds bilaterally, clear to auscultation and percussion. No rales, rhonchi or wheezes noted. No increased work of breathing, no retractions or nasal flaring. Abdomen/GI: Soft, non-tender, with normal bowel sounds. No distension or tympany. No guarding or rebound. No evidence of tenderness throughout. Back: No spinal tenderness. No costovertebral tenderness. Full range of motion. Skin: Warm, dry with normal turgor. Normal color with no rashes, no lesions, and no evidence of cellulitis. MS/ Extremity: Pulses equal, no cyanosis. Neurovascular intact. Full, normal range of motion. Neuro: Awake and alert, GCS 15, oriented to person, place, time, and situation. Cranial nerves II-XII grossly intact. Motor strength 5/5 in all extremities. Sensory grossly intact. Cerebellar exam normal. Normal gait. 16:40 ENT: Mouth: Lips: lacerated, approximately 2 cm(s), philtrum, Oral mucosa: pink and intact, moist, Gums: pink, Tongue: is moist, smaller laceration noted to inner upper lip, Posterior pharynx: Airway: patent, Tonsils: are normal in appearance, Uvula: midline, non-edematous, no erythema, swelling, is not appreciated, Dental exam: fractured teeth are noted, specifically the upper left central incisor (#9), pain, that is mild. Vital Signs: 15:44 BP 150 / 83; Pulse 70; Resp 16 S; Temp 97.5(TE); Pulse Ox 98% on R/A; Weight 77.11 kg ca1 (R); Height 5 ft. 2 in. (157.48 cm) (R); Pain 5/10; 17:03 BP 156 / 59; Pulse 70; Resp 16 S; Pulse Ox 99% on R/A; ca1 15:44 Body Mass Index 31.09 (77.11 kg, 157.48 cm) ca1 Laceration: 16:40 Wound Repair of 2cm ( 0.8in ) subcutaneous laceration to philtrum. Irregularly shaped.. jr8 Distal neuro/vascular/tendon intact. Anesthesia: Local anesthetic administered with 2 mls of 1% lidocaine. Wound prep: Moderate cleansing with hibiclenz, Wound irrigation with saline, Wound explored extensively. Skin closed with 2 5-0 Prolene using interrupted sutures and sterile technique. Patient tolerated well. MDM: 15:51 Patient medically screened. jr8 16:40 Data reviewed: vital signs, nurses notes, and as a result, I will discharge patient. jr8 Data interpreted: Pulse oximetry: on room air is 98 %. Interpretation: normal. Counseling: I had a detailed discussion with the patient and/or guardian regarding: the historical points, exam findings, and any diagnostic results supporting the discharge/admit diagnosis, the need for outpatient follow up, a dentist, a family practitioner, to return to the emergency department if symptoms worsen or persist or if there are any questions or concerns that arise at home. 03/28 16:25 Order name: Dressing - Wound; Complete Time: 16:25 ca1 03/28 16:25 Order name: Gloves, Sterile; Complete Time: 16:25 ca1 03/28 16:25 Order name: Setup Suture Tray; Complete Time: 16:25 ca1 Administered Medications: 16:25 Drug: Lidocaine (1 %) 1 amp {Note: by PA. Yosef} Volume: 5 ml; Route: Infiltration; ca1 17:02 Drug: Tetanus-Diphtheria Toxoid Adult 0.5 ml {Funeral Home Attendant: [employer]. Exp: ca1 12/14/2022. Lot #: [id number]. } Route: IM; Site: right deltoid; 17:30 Follow up: Response: No adverse reaction ca1 Disposition: 03/29 07:16 Co-signature as Attending Physician, Migue Evans MD I agree with the assessment and kdr plan of care. Disposition: 03/28/21 16:47 Discharged to Home. Impression: Laceration without foreign body of lip. - Condition is Stable. - Discharge Instructions: Laceration Care, Adult, Facial Laceration. - Medication Reconciliation Form, Thank You Letter, Antibiotic Education, Prescription Opioid Use form. - Follow up: Private Physician; When: 1 week; Reason: Wound Recheck, Recheck today's complaints, Continuance of care, Staple/Suture removal, Re-evaluation by your physician. - Problem is new. - Symptoms have improved. Signatures: Migue Evans MD MD [facility] Yosef Mcnamara PA PA jr8 Sheila Hidalgo RN RN ca1 Corrections: (The following items were deleted from the chart) 03/28 16:19 16:18 Social history: Smoking status: Patient denies any tobacco usage or history of. ca1 ca1 17:37 16:47 03/28/2021 16:47 Discharged to Home. Impression: Laceration without foreign body ca1 of lip. Condition is Stable. Forms are Medication Reconciliation Form, Thank You Letter, Antibiotic Education, Prescription Opioid Use. Follow up: Private Physician; When: 1 week; Reason: Wound Recheck, Recheck today's complaints, Continuance of care, Staple/Suture removal, Re-evaluation by your physician. Problem is new. Symptoms have improved. jr8
--- NOTE | 2021-03-28 16:48 | ER ---
Nurse's Notes [facility] Name: Tony Terry Age: 80 yrs Sex: Female : 1940 Arrival Date: 03/28/2021 Time: 15:44 Bed 5 Private MD: Diagnosis: Laceration without foreign body of lip Presentation: 03/28 15:44 Chief complaint: EMS states: Slipped and fell face first 15 - 20 mins [employer]ERSON. Denies LOC. ca1 NOT on blood thinners. Lac on R upper lip. Coronavirus screen: Client denies travel out of the [place] in the last 14 days. At this time, the client does not indicate any symptoms associated with coronavirus-19. Ebola Screen: Patient negative for fever greater than or equal to 101.5 degrees Fahrenheit, and additional compatible Ebola Virus Disease symptoms Patient denies exposure to infectious person. Patient denies travel to an Ebola-affected area in the 21 days before illness onset. No symptoms or risks identified at this time. Initial Sepsis Screen: Does the patient meet any 2 criteria? No. Patient's initial sepsis screen is negative. Does the patient have a suspected source of infection? No. Patient's initial sepsis screen is negative. Risk Assessment: Do you want to hurt yourself or someone else? Patient reports no desire to harm self or others. Onset of symptoms was March 28, 2021. 15:44 Method Of Arrival: EMS: [facility] ca1 15:44 Acuity: ALPHONSE 4 ca1 Historical: - Allergies: 16:19 PENICILLINS; ca1 - PMHx: 16:19 Hypertension; Gastric Reflux; ca1 - PSHx: 16:19 Hysterectomy; ca1 - Immunization history:: Client reports receiving the 2nd dose of the Covid vaccine, Client reports receiving the 1st dose of the Covid vaccine, Last tetanus immunization: unknown, Pneumococcal vaccine is not up to date, Flu vaccine is not up to date. - Social history:: Smoking status: Patient denies any tobacco usage or history of. Screenin:50 Abuse screen: Denies threats or abuse. Denies injuries from another. Nutritional ca1 screening: No deficits noted. Tuberculosis screening: No symptoms or risk factors identified. Fall Risk Fall in past 12 months (25 points). Total Brink Fall Scale indicates No Risk (0-24 pts). Assessment: 15:50 General: Appears in no apparent distress. comfortable, Behavior is calm, cooperative, ca1 appropriate for age. Pain: Complains of pain in philtrum Pain currently is 4 out of 10 on a pain scale. Neuro: Level of Consciousness is awake, alert, obeys commands, Oriented to person, place, time, situation. Derm: Skin is healthy with good turgor, Skin is pink, warm \T\ dry. Musculoskeletal: Circulation, motion, and sensation intact. Capillary refill < 3 seconds, Range of motion: intact in all extremities. Injury Description: Laceration sustained to philtrum is clean, 0.5 to 2.5 cm long, was sustained less than 30 minutes ago. a small amount of bleeding noted at this time. 17:03 Reassessment: Patient appears in no apparent distress at this time. Patient and/or ca1 family updated on plan of care and expected duration. Pain level reassessed. Patient is alert, oriented x 3, equal unlabored respirations, skin warm/dry/pink. Vital Signs: 15:44 BP 150 / 83; Pulse 70; Resp 16 S; Temp 97.5(TE); Pulse Ox 98% on R/A; Weight 77.11 kg ca1 (R); Height 5 ft. 2 in. (157.48 cm) (R); Pain 5/10; 17:03 BP 156 / 59; Pulse 70; Resp 16 S; Pulse Ox 99% on R/A; ca1 15:44 Body Mass Index 31.09 (77.11 kg, 157.48 cm) ca1 ED Course: 15:44 Patient arrived in ED. ca1 15:44 Sheila Hidalgo, RN is Primary Nurse. ca1 15:45 Arm band placed on right wrist. ca1 15:50 Patient has correct armband on for positive identification. Bed in low position. Call ca1 light in reach. Side rails up X 1. Pulse ox on. NIBP on. Warm blanket given. 15:51 [facility] jr8 15:51 Migue Evans MD is Attending Physician. jr8 15:55 Triage completed. ca1 16:50 Assist provider with laceration repair on philtrum that was 2.5 cm. or less using ca1 sutures. Set up tray. Performed by Yosef GUILLEN Dressed with 2x2 Patient tolerated well. Patient did not have IV access during this emergency room visit. Administered Medications: 16:25 Drug: Lidocaine (1 %) 1 amp {Note: by WILMER Navas.} Volume: 5 ml; Route: Infiltration; ca1 17:02 Drug: Tetanus-Diphtheria Toxoid Adult 0.5 ml {[employer] Production Associate: [employer]. Exp: ca1 12/14/2022. Lot #: [id number]. } Route: IM; Site: right deltoid; 17:30 Follow up: Response: No adverse reaction ca1 Outcome: 16:47 Discharge ordered by MD. milan 17:17 Discharged to home ambulatory, with family. ca1 17:17 Condition: stable 17:17 Discharge instructions given to patient, Instructed on discharge instructions, follow up and referral plans. wound care, Demonstrated understanding of instructions, follow-up care, wound care. 17:37 Patient left the ED. ca1 Signatures: Yosef Mcnamara PA PA jr8 Acob, Cheryl RN RN ca1 Corrections: (The following items were deleted from the chart) 16:19 16:18 Social history: Smoking status: Patient denies any tobacco usage or history of. ca1 ca1
[2021-03-28] MEDS ORDERED: TETANUS & DIPHTHERIA TOX,ADULT 0.5 ML VIAL ONE (17:20)
[2021-03-28 17:43] VITALS: TEMP 97.5
[2021-03-28 17:45] VITALS: BP 156/59; O2SAT 99
== END 2021-03-28 17:37 | disposition home or self-care (01) ==
LOC: ER 15:38
PROC: 0CQ0XZZ Repair Upper Lip, External Approach (ICD-10-PCS; principal; 2021-03-28)
DX: S01.511A Laceration without foreign body of lip, initial encounter (principal); W01.198A Fall on same level from slipping, tripping and stumbling with subsequent striking against other object, initial encounter; Y93.01 Activity, walking, marching and hiking; Y92.89 Other specified places as the place of occurrence of the external cause; Z23 Encounter for immunization; Z88.0 Allergy status to penicillin; I10 Essential (primary) hypertension
CPT/HCPCS: 90714

== ENCOUNTER 2021-04-04 14:42 | Emergency (ER) | payer OTHER ==
--- NOTE | 2021-04-04 16:37 | ER ---
Nurse's Notes [facility] Name: Tony Terry Age: 80 yrs Sex: Female : 1940 Arrival Date: 04/04/2021 Time: 14:43 Bed 30 Private MD: Diagnosis: Encounter for removal of sutures Presentation: 04/04 14:52 Chief complaint: Patient states: "I am here to get the sutures removed there were jd3 placed last .". Coronavirus screen: At this time, the client does not indicate any symptoms associated with coronavirus-19. Ebola Screen: Patient negative for fever greater than or equal to 101.5 degrees Fahrenheit, and additional compatible Ebola Virus Disease symptoms. Initial Sepsis Screen: Does the patient meet any 2 criteria? No. Patient's initial sepsis screen is negative. Does the patient have a suspected source of infection? No. Patient's initial sepsis screen is negative. Risk Assessment: Do you want to hurt yourself or someone else? Patient reports no desire to harm self or others. Onset of symptoms was March 28, 2021. 14:52 Method Of Arrival: Ambulatory jd3 14:52 Acuity: ALPHONSE 5 jd3 Historical: - Allergies: 14:53 PENICILLINS; jd3 - PMHx: 14:53 Gastric Reflux; Hypertension; jd3 - PSHx: 14:53 Hysterectomy; jd3 - Immunization history:: Adult Immunizations up to date, Client reports receiving the 2nd dose of the Covid vaccine. - Social history:: Smoking status: Patient denies any tobacco usage or history of. Screenin:59 Abuse screen: Denies threats or abuse. Nutritional screening: No deficits noted. jd3 Tuberculosis screening: No symptoms or risk factors identified. Fall Risk Ambulatory Aid- None/Bed Rest/Nurse Assist (0 pts). Gait- Normal/Bed Rest/Wheelchair (0 pts) Mental Status- Oriented to own ability (0 pts). Total Brink Fall Scale indicates No Risk (0-24 pts). Assessment: 16:58 General: Appears in no apparent distress. comfortable, Behavior is calm, cooperative, jd3 appropriate for age. Pain: Denies pain. Neuro: Level of Consciousness is awake, alert, obeys commands, Oriented to person, place, time, situation. Cardiovascular: Capillary refill < 3 seconds Patient's skin is warm and dry. Respiratory: Airway is patent Respiratory effort is even, unlabored, Respiratory pattern is regular, symmetrical. GI: No signs and/or symptoms were reported involving the gastrointestinal system. : No signs and/or symptoms were reported regarding the genitourinary system. EENT: No signs and/or symptoms were reported regarding the EENT system. Derm: Skin is intact, Skin is dry, Skin is normal, Skin temperature is warm sutures noted on nose. taken off by er provider. Musculoskeletal: Circulation, motion, and sensation intact. Range of motion: intact in all extremities. Vital Signs: 14:53 BP 145 / 95; Pulse 69; Resp 17 S; Temp 97.8(TE); Pulse Ox 98% on R/A; Weight 77.56 kg jd3 (R); Height 5 ft. 2 in. (157.48 cm) (R); Pain 1/10; 17:00 Pulse 67; Resp 16 S; Pulse Ox 98% on R/A; jd3 14:53 Body Mass Index 31.28 (77.56 kg, 157.48 cm) jd3 ED Course: 14:43 Patient arrived in ED. ds1 14:53 Triage completed. jd3 14:56 Arm band placed on. j 16:09 Terrell Cruz PA is PHCP. [facility] 16:09 Ju Tanner MD is Attending Physician. [facility] 16:58 David Roberto RN is Primary Nurse. jd3 16:59 No provider procedures requiring assistance completed. Patient did not have IV access jd3 during this emergency room visit. 17:00 Patient has correct armband on for positive identification. Bed in low position. Call jd3 light in reach. Side rails up X 1. Pulse ox on. NIBP on. Administered Medications: No medications were administered Outcome: 16:36 Discharge ordered by MD. [facility] 17:00 Discharged to home ambulatory, with family. jd3 17:00 Condition: stable 17:00 Discharge instructions given to patient, Instructed on discharge instructions, follow up and referral plans. Demonstrated understanding of instructions, follow-up care. 17:00 Patient left the ED. j Signatures: Terrell Cruz PA PA jmm Sanford, Demi ds1 David Roberto, RICK RN jd3 Corrections: (The following items were deleted from the chart) 14:56 14:52 Acuity: ALPHONSE 4 jd3 jd3
--- NOTE | 2021-04-04 16:37 | EDPHYS ---
Physician Documentation [facility] Name: Tony Terry Age: 80 yrs Sex: Female : 1940 Arrival Date: 04/04/2021 Time: 14:43 Bed 30 Private MD: ED Physician Ju Tanner HPI: 04/04 16:34 This 80 yrs old Female presents to ER via Ambulatory with complaints of jmm Suture Removal. 16:34 The patient has sutures on the philtrum. Sutures/carlo progress: The patient has no jmm c/o's. The wound is well-healing with no redness, swelling, discharge, or dehiscence reported. It is unknown whether or not the patient has had similar symptoms in the past. Historical: - Allergies: 14:53 PENICILLINS; jd3 - PMHx: 14:53 Gastric Reflux; Hypertension; jd3 - PSHx: 14:53 Hysterectomy; jd3 - Immunization history:: Adult Immunizations up to date, Client reports receiving the 2nd dose of the Covid vaccine. - Social history:: Smoking status: Patient denies any tobacco usage or history of. ROS: 16:34 Constitutional: Negative for fever, chills, and weight loss, Cardiovascular: Negative jmm for chest pain, palpitations, and edema, Respiratory: Negative for shortness of breath, cough, wheezing, and pleuritic chest pain. 16:34 Skin: Positive for laceration(s). 16:34 All other systems are negative. Exam: 16:34 Constitutional: This is a well developed, well nourished patient who is awake, alert, jmm and in no acute distress. 16:34 Eyes: EOMI, no conjunctival erythema appreciated ENT: Moist Mucus Membranes Neck: Trachea midline, Supple Chest/axilla: Normal chest wall appearance and motion. Cardiovascular: Regular rate and rhythm. No edema appreciated Respiratory: Normal respirations, no respiratory distress appreciated Abdomen/GI: Non distended, soft Back: Normal ROM 16:34 Head/face: healing laceration noted to the upper lip. 16:34 Skin: healing laceration noted to the philtru,, no induration, drainage, appreciated. 16:34 Neuro: Motor: is normal. 16:34 Psych: Behavior/mood is pleasant, cooperative. Vital Signs: 14:53 BP 145 / 95; Pulse 69; Resp 17 S; Temp 97.8(TE); Pulse Ox 98% on R/A; Weight 77.56 kg jd3 (R); Height 5 ft. 2 in. (157.48 cm) (R); Pain 1/10; 17:00 Pulse 67; Resp 16 S; Pulse Ox 98% on R/A; jd3 14:53 Body Mass Index 31.28 (77.56 kg, 157.48 cm) jd3 Procedures: 16:34 Suture/Staple removal: Removed 2 sutures, from philtrum, site appears well healed, joey dressed with Patient tolerated well. MDM: 16:21 Patient medically screened. joey 16:34 Data reviewed: vital signs, nurses notes. Counseling: I had a detailed discussion with joey the patient and/or guardian regarding: the historical points, exam findings, and any diagnostic results supporting the discharge/admit diagnosis, the need for outpatient follow up, to return to the emergency department if symptoms worsen or persist or if there are any questions or concerns that arise at home. Administered Medications: No medications were administered Disposition: 04/04/21 16:36 Discharged to Home. Impression: Encounter for removal of sutures. - Condition is Stable. - Discharge Instructions: Suture Removal, Care After. - Medication Reconciliation Form, Thank You Letter, Antibiotic Education, Prescription Opioid Use form. - Follow up: Private Physician; When: As needed. Signatures: Terrell Cruz PA PA jmm Davies, Jonathon, RN RN jd3 Corrections: (The following items were deleted from the chart) 17:00 16:36 04/04/2021 16:36 Discharged to Home. Impression: Encounter for removal of jd3 sutures. Condition is Stable. Forms are Medication Reconciliation Form, Thank You Letter, Antibiotic Education, Prescription Opioid Use. Follow up: Private Physician; When: As needed. joey
[2021-04-04 17:05] VITALS: BP 145/95; TEMP 97.8; O2SAT 98
== END 2021-04-04 17:00 | disposition home or self-care (01) ==
LOC: ER 14:42
DX: Z48.02 Encounter for removal of sutures (principal)

== ENCOUNTER → 2023-10-08 | Emergency (ER) | payer OTHER ==
[~2023-10-08] MED LIST: CYCLOBENZAPRINE 10 MG TAB ONE; dexAMETHasone 10 MG/ML VIAL ONE
[2023-10-08 20:48] LABS: Specific Gravity 1.005 (1.005-1.030); Urine Bacteria None Seen /HPF (<20); Urine Bilirubin NEGATIVE (Negative); Urine Blood Negative (Negative); Urine Clarity Clear (Clear); Urine Color Colorless (Yellow); Urine Glucose NEGATIVE (Negative); Urine Protein NEGATIVE (Negative); Urine RBC None Seen /HPF (None Seen); Urine Urobilinogen Normal (Normal)
--- NOTE | 2023-10-08 21:17 | RAD REPORT ---
EXAM DESCRIPTION: CT - Spine Lumbar Wo Con - 10/08/2023 9:02 pm CLINICAL HISTORY: Lower back pain;Radiculopathy COMPARISON: Abdomen Pelvis Wo Contrast dated 09/20/2019 TECHNIQUE: Axial noncontrast CT imaging of the lumbar spine was performed with coronal and sagittal re-formatted images. All CT scans are performed using dose optimization technique as appropriate and may include automated exposure control or mA/KV adjustment according to patient size. FINDINGS: Acute inferior endplate compression fracture at L2 with less than 20% loss height. No othe r fractures are identified. A broad-based disc bulge that is left eccentric is present which results in mild central spinal stenosis at this level and may encroach on the exiting left L2 nerve root. The re is also facet and ligamentum flavum hypertrophy. Grade 1/2 anterolisthesis of L4 on L5 with uncovering of the disc as well as facet ligamentum flavum hypertrophy results in moderate central spinal stenosis. Neural foraminal narrowing is mild bilateral ly. . Severe disc height loss at L5-S1. IMPRESSION: L2 compression fracture with less than 20% loss of height and no bony retropulsion. Broa d-based disc bulge at L2-3 with a left far lateral component which could encroach on the exiting left L2 nerve root. Correlate for distribution of radicular symptoms. At least moderate central spinal stenosis at L4-5 secondary to a combination of factors including gra de 1/2 anterolisthesis.
[2023-10-08 21:34] LABS: Hematocrit 38.4 % (36.0-45.0); MCV 94.7 fL (80-100); MPV 7.8 fL (7.6-11.3); Platelets 199 thou/uL (152-406); RBC Red Blood Cell Count 4.06 M/uL (3.86-4.86)
[2023-10-08 22:00] LABS: Potassium 4.5 mEq/L (3.5-5.1)
--- NOTE | 2023-10-08 22:18 | ER ---
Nurse's Notes [facility] Name: Tony Terry Age: 83 yrs Sex: Female : 1940 Arrival Date: 10/08/2023 Time: 19:28 Bed 20 Private MD: Diagnosis: Lumbago with sciatica, left side Presentation: 10/08 20:04 Chief complaint: Patient states: I am having left lower back pain that radiates down my jb4 left leg. It all started when I started taking Ropinirole. Coronavirus screen: At this time, the client does not indicate any symptoms associated with coronavirus-19. Ebola Screen: No symptoms or risks identified at this time. Initial Sepsis Screen: Does the patient meet any 2 criteria? No. Patient's initial sepsis screen is negative. Does the patient have a suspected source of infection? No. Patient's initial sepsis screen is negative. Risk Assessment: Do you want to hurt yourself or someone else? Patient reports no desire to harm self or others. Onset of symptoms was October 08, 2023. Transition of care: patient was not received from another setting of care. 20:04 Method Of Arrival: Ambulatory jb4 20:04 Acuity: ALPHONSE 4 jb4 Historical: - Allergies: 20:08 PENICILLINS; jb4 - PMHx: 20:08 Gastric Reflux; Hypertension; Bowel Obstruction; jb4 - PSHx: 20:08 abdominal; partial hysterectomy; jb4 - Immunization history:: Adult Immunizations not up to date. - Social history:: Smoking status: Patient denies any tobacco usage or history of. Screenin:15 [facility] ED Fall Risk Assessment (Adult) History of falling in the last 3 months, km8 including since admission No falls in past 3 months (0 pts) Confusion or Disorientation No (0 pts) Intoxicated or Sedated No (0 pts) Impaired Gait No (0 pts) Mobility Assist Device Used No (0 pt) Altered Elimination No (0 pt) Score/Fall Risk Level 0 - 2 = Low Risk Oriented to surroundings, Maintained a safe environment, Educated pt \T\ family on fall prevention, incl call for assistance when getting out of bed, Assessed \T\ reinforced patient's understanding of fall precautions. Abuse screen: Denies threats or abuse. Denies injuries from another. Nutritional screening: No deficits noted. Tuberculosis screening: No symptoms or risk factors identified. Assessment: 20:15 General: Appears in no apparent distress. comfortable, Behavior is calm, cooperative, km8 appropriate for age. Pain: Complains of pain in left low back Pain radiates to left thigh Pain currently is 3 out of 10 on a pain scale. Quality of pain is described as aching, sharp, Pain began 2 weeks Is intermittent, Alleviated by repositioning, Aggravated by increased activity, repositioning. Neuro: Leonard Agitation-Sedation Scale (RASS): 0 - Alert and Calm Level of Consciousness is awake, alert, obeys commands, Oriented to person, place, time, situation. Cardiovascular: Denies chest pain, shortness of breath, Capillary refill < 3 seconds Patient's skin is warm and dry. Respiratory: Airway is patent Respiratory effort is even, unlabored, Respiratory pattern is regular, symmetrical. GI: No signs and/or symptoms were reported involving the gastrointestinal system. : No signs and/or symptoms were reported regarding the genitourinary system. EENT: No signs and/or symptoms were reported regarding the EENT system. Derm: No signs and/or symptoms reported regarding the dermatologic system. Skin is intact, is healthy with good turgor, Skin is dry, Skin is pink, warm \T\ dry. normal, Skin temperature is warm. Musculoskeletal: Circulation, motion, and sensation intact. Range of motion: intact in all extremities, Reports pain in left low back. 21:15 Reassessment: Patient appears in no apparent distress at this time. No changes from km8 previously documented assessment. Patient and/or family updated on plan of care and expected duration. Pain level reassessed. Patient is alert, oriented x 3, equal unlabored respirations, skin warm/dry/pink. 22:15 Reassessment: Patient appears in no apparent distress at this time. No changes from km8 previously documented assessment. Patient and/or family updated on plan of care and expected duration. Pain level reassessed. Patient is alert, oriented x 3, equal unlabored respirations, skin warm/dry/pink. Vital Signs: 20:00 BP 160 / 71; Pulse 67; Resp 16; Pulse Ox 99% on R/A; km8 20:04 BP 155 / 77; Pulse 67; Resp 16; Temp 98.6(TE); Pulse Ox 100% on R/A; Weight 70.31 kg jb4 (R); Height 5 ft. 2 in. (R); Pain 5/10; 20:30 BP 160 / 71; Pulse 67; Resp 16; Pulse Ox 99% ; km8 21:00 BP 144 / 119; Pulse 77; Resp 16; Pulse Ox 100% ; km8 20:04 Body Mass Index 28.35 (70.31 kg, 157.48 cm) jb4 20:04 Pain Scale: Adult jb4 [place] Coma Score: 20:15 Eye Response: spontaneous(4). Motor Response: obeys commands(6). Verbal Response: km8 oriented(5). Total: 15. ED Course: 19:37 Patient arrived in ED. gm2 20:02 Astrid Earl PA-C is PHCP. sb4 20:02 Franky Montgomery MD is Attending Physician. sb4 20:08 Triage completed. jb4 20:08 Arm band placed on right wrist. jb4 20:15 Patient has correct armband on for positive identification. Bed in low position. Call km8 light in reach. Side rails up X 1. Pulse ox on. NIBP on. Pillow given. 20:15 No provider procedures requiring assistance completed. Patient maintains SpO2 km8 saturation greater than 95% on room air. 20:33 Carrie Herrera, RICK is Primary Nurse. km8 20:42 [facility] Sent. km8 21:00 CT Lumbar Spine Wo Con In Process Unspecified. EDMS 21:15 Inserted saline lock: 22 gauge in right hand, using aseptic technique. Blood collected. km8 22:17 Jocy Villagomez MD is Referral Physician. sb4 22:28 IV discontinued, intact, bleeding controlled, No redness/swelling at site. Pressure jb4 dressing applied. Administered Medications: 22:14 Drug: Cyclobenzaprine PO 10 mg PO once Route: PO; km8 22:14 Drug: Decadron - Dexamethasone IVP 10 mg IVP once Route: IVP; Site: right hand; km8 Medication: 20:15 VIS not applicable for this client. km8 Outcome: 22:17 Discharge ordered by . sb4 22:28 Discharged to home ambulatory, with family, jb4 22:28 Condition: stable 22:28 Discharge instructions given to patient, Instructed on discharge instructions, follow up and referral plans. no drinking with medication, no driving heavy equipment, medication usage, Demonstrated understanding of instructions, follow-up care, medications, Prescriptions given X 3, 22:28 Patient left the ED. jb4 Signatures: Dispatcher [employer] EDRivera Astorga RN RN jb4 Astrid Earl, PATierney PATierney silva4 Farideh Harrell gm2 Carrie Herrera RN RN km8
--- NOTE | 2023-10-08 22:18 | EDPHYS ---
Physician Documentation [facility] Name: Tony Terry Age: 83 yrs Sex: Female : 1940 Arrival Date: 10/08/2023 Time: 19:28 Bed 20 Private MD: ED Physician Franky Montgomery HPI: 10/09 00:29 This 83 yrs old Female presents to ER via Ambulatory with complaints of Back Pain. sb4 00:29 The patient presents with pain that is acute, with no known mechanism of injury. The sb4 symptoms are located in the left low back. Onset: The symptoms/episode began/occurred 2 week(s) ago. The pain radiates to the left leg. Associated signs and symptoms: Pertinent negatives: incontinence, numbness, tingling. The problem was sustained without known cause. The patient has not experienced similar symptoms in the past. The patient has not recently seen a physician. Historical: - Allergies: 10/08 20:08 PENICILLINS; jb4 - PMHx: 20:08 Gastric Reflux; Hypertension; Bowel Obstruction; jb4 - PSHx: 20:08 abdominal; partial hysterectomy; jb4 - Immunization history:: Adult Immunizations not up to date. - Social history:: Smoking status: Patient denies any tobacco usage or history of. ROS: 10/09 00:29 Constitutional: Negative for fever, chills, and weight loss, sb4 Back: Positive for pain at rest, pain with movement, radiated pain, of the left low back, Exam: 00:29 Constitutional: This is a well developed, well nourished patient who is awake, alert, sb4 and in no acute distress. Head/Face: Normocephalic, atraumatic. Eyes: Extra-ocular motions intact. Periorbital areas with no swelling, redness, or edema. ENT: Mucous membranes moist. Cardiovascular: Regular rate and rhythm with a normal S1 and S2. Respiratory: Lungs have equal breath sounds bilaterally, clear to auscultation and percussion. No rales, rhonchi or wheezes noted. No increased work of breathing, no retractions or nasal flaring. Abdomen/GI: Soft, non-tender, no distension. Skin: Warm, dry with normal turgor. Normal color with no rashes, no lesions, and no evidence of cellulitis. MS/ Extremity: Pulses equal, no cyanosis. Neurovascular intact. Full, normal range of motion. Neuro: Awake and alert, GCS 15, oriented to person, place, time, and situation. Motor strength 5/5 in all extremities. Sensory grossly intact. 00:29 Back: pain, that is moderate, of the left low back, ROM is painful, with all movement, normal spinal alignment noted, CVA tenderness, is absent, vertebral tenderness, is not appreciated, muscle spasm, is not present, Straight leg raises: left lower extremity illicits pain, 00:29 Neuro: Exam negative for acute changes, focal neuro deficits, motor deficits, sensory deficits, gait abnormality, paresthesias, weakness, Vital Signs: 10/08 20:00 BP 160 / 71; Pulse 67; Resp 16; Pulse Ox 99% on R/A; km8 20:04 BP 155 / 77; Pulse 67; Resp 16; Temp 98.6(TE); Pulse Ox 100% on R/A; Weight 70.31 kg jb4 (R); Height 5 ft. 2 in. (R); Pain 5/10; 20:30 BP 160 / 71; Pulse 67; Resp 16; Pulse Ox 99% ; km8 21:00 BP 144 / 119; Pulse 77; Resp 16; Pulse Ox 100% ; km8 20:04 Body Mass Index 28.35 (70.31 kg, 157.48 cm) jb4 20:04 Pain Scale: Adult jb4 Emma Coma Score: 20:15 Eye Response: spontaneous(4). Motor Response: obeys commands(6). Verbal Response: km8 oriented(5). Total: 15. MDM: 20:02 Patient medically screened. sb4 10/09 00:29 Differential diagnosis: Fracture Joint Injury ruptured disc, spinal injury, sprain, sb4 vertebral fracture. Data reviewed: vital signs, nurses notes, lab test result(s), radiologic studies, and as a result, I will discharge patient. Counseling: I had a detailed discussion with the patient and/or guardian regarding the historical points, exam findings, and any diagnostic results supporting the discharge/admit diagnosis, lab results, radiology results, the need for outpatient follow up, spine, to return to the emergency department if symptoms worsen or persist or if there are any questions or concerns that arise at home. 10/08 20:31 Order name: [facility]; Complete Time: 20:50 sb4 10/08 20:52 Order name: BMP; Complete Time: 22:02 sb4 10/08 20:52 Order name: CBC w/o diff; Complete Time: 21:52 sb4 10/08 20:44 Order name: CT Lumbar Spine Wo Con; Complete Time: 21:18 sb4 Administered Medications: 10/08 22:14 Drug: Cyclobenzaprine PO 10 mg PO once Route: PO; 8 22:14 Drug: Decadron - Dexamethasone IVP 10 mg IVP once Route: IVP; Site: right hand; 8 Disposition Summary: 10/08/23 22:17 Discharge Ordered Notes: Location: Home sb4 Problem: new sb4 Symptoms: are unchanged sb4 Condition: Stable sb4 Diagnosis - Lumbago with sciatica, left side sb4 Followup: sb4 - With: Jocy Villagomez MD - When: 2 - 3 days - Reason: Recheck today's complaints, Re-evaluation by your physician Discharge Instructions: - Discharge Summary Sheet sb4 - Spinal Compression Fracture sb4 - Lumbosacral Radiculopathy sb4 - Sciatica, [id number] sb4 Forms: - Medication Reconciliation Form sb4 - Thank You Letter sb4 - Antibiotic Education sb4 - Prescription Opioid Use sb4 - Patient Portal Instructions sb4 - Leadership Thank You Letter sb4 Prescriptions: - Cyclobenzaprine 10 mg Oral Tablet - take 1 tablet ORAL route every 8 hours As needed; 30 tablet; Refills: 0, sb4 Product Selection Permitted - Diclofenac Sodium 75 mg Oral Tablet Sustained Release - take 1 tablet ORAL route 2 times per day; 30 tablet; Refills: 0, Product sb4 Selection Permitted - Medrol (Mark) 4 mg Oral Tablets, Dose Pack - take 1 tablet ORAL route as directed - follow package instructions; 1 packet; sb4 Refills: 0, Product Selection Permitted Addendum: 10/10/2023 21:14 I was immediately available for consultation during this patient's visit. I did not e c2 personally see the patient or guide the patient's care. . Signatures: Dispatcher [employer] Rivera Olivarez RN RN jb4 Astrid Earl PA-C PA-C sb4 Franky Montgomery MD MD ec2 Javier, Carrie, RN RN km8
[2023-10-09 02:53] VITALS: BP 144/119; TEMP 98.6; O2SAT 100
== END ==
LOC: ER 19:28 → EEVIPCON 19:28
DX: M54.42 Lumbago with sciatica, left side (principal); I10 Essential (primary) hypertension; Z88.0 Allergy status to penicillin
CPT/HCPCS: 81001; 80048; 36415; 85027; 72131; 96374; 99285; J1100

== ENCOUNTER 2024-08-03 08:31 | Day surgery (SDC) | payer OTHER ==
[2024-08-01 12:43] LABS: Absolute Eosinophils 0.2 K/uL (0-0.5); Absolute Lymphocytes (CBC) 1.4 K/uL (0.7-4.9); Absolute Monocytes 0.8 K/uL (0.1-1.3); Absolute Neutrophil 4.6 K/uL (1.8-8.0); Basophils % 0.4 % (0-1.3); Eosinophils % 2.8 % (0-4.4); Hematocrit 31.8 % (36.0-45.0); Hemoglobin 10.6 g/dL (12.0-15.0); Lymphocytes % 19.5 % (15.3-44.8); MCH 31.6 pg (27.0-35.0); MCHC 33.2 g/dL (32.0-36.0); MPV 7.3 fL (7.6-11.3); Monocytes % 11.6 % (3.3-12.3); Neutrophils % 65.7 % (41.7-73.7); Nucleated Red Blood Cells % 0.1 % (0-0); Platelets 223 thou/uL (152-406); RBC Red Blood Cell Count 3.35 M/uL (3.86-4.86); Red Cell Distribution Width 13.8 % (12.1-15.2)
[2024-08-01 12:54] LABS: PTT, Activated Partial Thromb 28.7 SECONDS (24.3-36.9); Protime INR 0.98
[2024-08-01 12:58] LABS: Anion Gap 5.9 mEq/L (5.0-15.0); Potassium 3.9 mEq/L (3.5-5.1)
--- NOTE | 2024-08-01 13:48 | RAD REPORT ---
Procedure: Chest Pa And Lat (2 Views) HISTORY: Chest pain COMPARISON: 2019 FINDINGS: The lungs appear clear of acute infiltrate. No significant pleural effusion noted. The heart is mildly enlarged. IMPRESSION: No acute abnormality is displayed.
--- NOTE | 2024-08-02 12:52 | EKG ---
Test Date: 2024-08-01 Test Time: 12:37:57 Box Blank Machine Operator: DIALLO MEASUREMENT RESULTS: Intervals: Rate: 70 NM: 118 QRSD: 80 QT: 396 QTc: 427 [place]: P: 36 NM: 118 QRS: -17 T: -19 INTERPRETIVE STATEMENTS: Normal sinus rhythm Possible Left atrial enlargement Low voltage QRS Cannot rule out Anterior infarct, age undetermined Abnormal ECG No previous ECG available for comparison Electronically Signed On 08-02-24 12:50:08 CDT by Jhon Suarez
[2024-08-03] MEDS ORDERED: VANCOMYCIN 1 GM/VIAL ONE (08:51)
[2024-08-03] MEDS ORDERED: Ringers Lactate 1,000 ML IV ONE (08:51)
[2024-08-03] MEDS ORDERED: FENTANYL CITR 100 MCG/2 ML ONE (09:00)
[2024-08-03] MEDS ORDERED: EPINEPHRINE 1 MG/ML VIAL ONE (09:00)
[2024-08-03] MEDS ORDERED: LIDOCAINE 1% MPF 5 ML VIAL ONE ×2 (09:00→09:10)
[2024-08-03] MEDS ORDERED: dexAMETHasone 4 MG/ML VIAL ONE (09:00)
[2024-08-03] MEDS ORDERED: BUPIVACAINE 0.25% PF 30 ML VIAL ONE (09:01)
[2024-08-03] MEDS ORDERED: propofoL 200 MG/20 ML VIAL IV ONE (09:11)
[2024-08-03] MEDS ORDERED: ONDANSETRON 4 MG/2 ML VIAL ONE (10:32)
[2024-08-03] MEDS: CEFAZOLIN SODIUM 1 GM/VIAL ONE (11:15)
[2024-08-03] MEDS ORDERED: GLYCOPYRROLATE 0.2 MG/ML SYR ONE (11:39)
[2024-08-03] MEDS: Ringers Lactate 1,000 ML IV ONE (11:40)
[2024-08-03] MEDS: HYDROMORPHONE HCL 1 MG/ML INJ ONE (13:00)
--- NOTE | 2024-08-03 13:09 | P.BOP ---
Preoperative diagnosis: Right bimalleolar ankle fracture Postoperative diagnosis: Same Primary procedure: ORIF right bimalleolar ankle fracture User Interface Designer: NONE,NONE Estimated blood loss: 10 cc Specimen: None Findings: See dictation Anesthesia: General Complications: None Implants: Acumed 4 hole distal fibular locking plate; 2- 4.0 cannulated screws Fluids & blood products: Per anesthesia record Transferred to: Recovery Room Condition: Good
--- NOTE | 2024-08-03 13:51 | RAD REPORT ---
EXAM:Ankle Right 2 View CLINICAL HISTORY: Ankle surgery FINDINGS: Screws and plates affix lateral and medial malleolar fractures in good alignment
[2024-08-03] MEDS: ONDANSETRON 4 MG/2 ML VIAL ONE (14:45)
--- NOTE | 2024-08-03 14:54 | RAD REPORT ---
EXAM:Ankle Right 2 View CLINICAL HISTORY: Ankle fracture with surgery FINDINGS: Fluoroscopy time 0.6 minutes. 10 fluoroscopic intraoperative spot images obtained. Plate and screws affix lateral and medial malleolar fractures in good alignment Surgery performed by Dr. Abraham
[2024-08-03 14:58] VITALS: BP 149/50; TEMP 96.8; O2SAT 100
[2024-08-03] MEDS: HYDROCODONE/APAP 5/325 MG TAB ONE (15:10)
== END 2024-08-03 15:45 | disposition home or self-care (01) ==
LOC: OR 08:31
PROVIDERS: ATTEND Orthopaedic Surgery Sports Medicine
PROC: 0QSG04Z Reposition Right Tibia with Internal Fixation Device, Open Approach (ICD-10-PCS; 2024-08-03)
PROC: 0QSJ04Z Reposition Right Fibula with Internal Fixation Device, Open Approach (ICD-10-PCS; principal; 2024-08-03 10:30)
DX: S82.841A Displaced bimalleolar fracture of right lower leg, initial encounter for closed fracture (principal); M25.571 Pain in right ankle and joints of right foot; D64.9 Anemia, unspecified; I10 Essential (primary) hypertension; E78.00 Pure hypercholesterolemia, unspecified
CPT/HCPCS: 93005; 85025; 80048; 36415; 85610; 85730; 71046; 73600 ×2; 27814; J2704; J1100; J2001 ×2; J3010; J0171; J1170; J2405 ×2; J7120 ×2; J0690